=== PATIENT | female | born 1955 | race Caucasian/White ===

== ENCOUNTER → 2023-06-29 11:26 | Outpatient (REF) | payer MEDICARE, OTHER, SELFPAY | LOC: RAD 11:26 | PROVIDERS: ATTENDING PHYSICIAN Nurse Practitioner Family; FAMILY PHYSICIAN Specialist; REFERRING PHYSICIAN Family Medicine | DX: M53.3 Sacrococcygeal disorders, not elsewhere classified (principal); M25.551 Pain in right hip | CPT/HCPCS: 72170; 72220; 73502 ==

== ENCOUNTER → 2023-10-23 12:49 | Outpatient (REF) | payer MEDICARE, OTHER, SELFPAY ==
[2023-10-23 14:15] LABS: % Basophils 0.4 % (0-2); % Immature Granulocytes 0.4 % (0-0.5); % Lymphocytes 21.7 % (20.5-51.1); % Monocytes 6.5 % (1.7-9.3); Absolute Eosinophils 0.1 10^3/uL (0-0.7); Absolute Lymphocytes 1.5 10^3/uL (1.2-3.4); Absolute Monocytes 0.5 10^3/uL (0.1-0.6); Absolute Neutrophils 4.7 10^3/uL (1.4-6.5); Hematocrit 39.3 % (37.0-47.0); Mean Corp Hgb Conc. 33.1 g/dL (33.0-37.0); Mean Corpuscular Hgb 32.9 pg (27.0-31.0); Mean Corpuscular Volume 99.5 fL (81.0-99.0); Mean Platelet Volume 9.9 fL (7.4-10.4); Nucleated Red Blood Cells % 0 %; Platelet Count 309 10^3/uL (130-400); Red Blood Cell Count 3.95 10^6/uL (4.20-5.40); Red Cell Dist. Width 12.5 % (11.5-14.5); White Blood Cell Count 6.9 10^3/uL (4.8-10.8)
[2023-10-23 14:24] LABS: APTT 25.2 Sec (23.4-35.0); INR 0.94; PT 12.5 Sec (11.4-14.6)
[2023-10-23 14:27] LABS: Glycohemoglobin (HgbA1c) 5.6 % (4.0-5.6)
[2023-10-23 16:04] LABS: Blood Urea Nitrogen 23 mg/dl (7-17); Carbon Dioxide 28 mmol/L (22-30); Chloride 98 mmol/L (98-107); Glucose 129 mg/dl (70-99); Sodium 137 mmol/L (135-145); eGFR > 60.00
== END ==
LOC: RCS 12:49
PROVIDERS: ATTENDING PHYSICIAN Orthopaedic Surgery Sports Medicine; FAMILY PHYSICIAN Family Medicine
DX: M16.11 Unilateral primary osteoarthritis, right hip (principal); Z01.818 Encounter for other preprocedural examination; R79.1 Abnormal coagulation profile; R73.09 Other abnormal glucose
CPT/HCPCS: 36415; 80048; 83036; 85025; 85610; 85730; 93005

== ENCOUNTER 2024-04-21 14:07 | Outpatient (RCR) | payer MEDICARE, OTHER, SELFPAY | END 2024-04-21 23:59 | disposition home or self-care (01) | LOC: RPT 14:07 | PROVIDERS: ATTENDING PHYSICIAN Specialist; FAMILY PHYSICIAN Family Medicine | DX: M46.1 Sacroiliitis, not elsewhere classified (principal); Z73.6 Limitation of activities due to disability; R26.89 Other abnormalities of gait and mobility; Z96.643 Presence of artificial hip joint, bilateral | CPT/HCPCS: 97110; 97140; 97162 ==

== ENCOUNTER 2024-05-14 12:50 | Outpatient (RCR) | payer MEDICARE, OTHER, SELFPAY | END 2024-05-14 23:59 | disposition home or self-care (01) | LOC: RPT 12:50 | PROVIDERS: ATTENDING PHYSICIAN Specialist; FAMILY PHYSICIAN Family Medicine | DX: M46.1 Sacroiliitis, not elsewhere classified (principal); Z73.6 Limitation of activities due to disability; R26.89 Other abnormalities of gait and mobility; Z96.643 Presence of artificial hip joint, bilateral | CPT/HCPCS: 97110; 97140; 97530 ==

== ENCOUNTER → 2025-02-22 12:24 | Outpatient (REF) | payer MEDICARE, OTHER, SELFPAY | LOC: RAD 12:24 | PROVIDERS: ATTENDING PHYSICIAN Nurse Practitioner Family; FAMILY PHYSICIAN Family Medicine | DX: R05.1 Acute cough (principal); R06.2 Wheezing; J44.9 Chronic obstructive pulmonary disease, unspecified; R09.89 Other specified symptoms and signs involving the circulatory and respiratory systems | CPT/HCPCS: 71046 ==

== ENCOUNTER → 2025-03-05 16:26 | Outpatient (REF) | payer MEDICARE, OTHER, SELFPAY | LOC: RCS 16:26 | PROVIDERS: ATTENDING PHYSICIAN Nurse Practitioner Family; FAMILY PHYSICIAN Family Medicine | DX: R05.1 Acute cough (principal); J44.9 Chronic obstructive pulmonary disease, unspecified; I10 Essential (primary) hypertension; R06.00 Dyspnea, unspecified; R06.09 Other forms of dyspnea | CPT/HCPCS: 93005 ==

== ENCOUNTER → 2025-04-01 09:13 | Outpatient (REF) | payer MEDICARE, OTHER, SELFPAY | LOC: RSP 09:13 | PROVIDERS: ATTENDING PHYSICIAN Nurse Practitioner Family | DX: R06.09 Other forms of dyspnea (principal); R05.1 Acute cough; J44.9 Chronic obstructive pulmonary disease, unspecified | CPT/HCPCS: 88738; 94010; 94727; 94729 ==

== ENCOUNTER → 2025-05-21 13:15 | Outpatient (REF) | payer MEDICARE, OTHER, SELFPAY | LOC: RAD 13:15 | PROVIDERS: ATTENDING PHYSICIAN Family Medicine | DX: R05.1 Acute cough (principal); R06.00 Dyspnea, unspecified | CPT/HCPCS: 71270; Q9967 ==